=== PATIENT | male | born 1930 | race Caucasian/White ===

== ENCOUNTER 2021-11-12 08:33 | Inpatient (IN) | payer OTHER ==
[~2021-11-12] VITALS: Ht 175.3 cm; Wt 53.6 kg
[~2021-11-12 08:33] MED LIST: ASPI81CH43; SIMV20TA2
[2021-11-12 10:45] LABS: Basophils # (auto) 0.1 10 ^3/uL (0-0.2); Basophils % (auto) 1.2 % (0.0-2.0); Eosinophils # (auto) 0.4 10 ^3/uL (0-0.8); Eosinophils % (auto) 6.4 % (0.0-7.0); Hematocrit 36.6 % (41.0-53.0); Hemoglobin 12.1 g/dL (13.5-17.5); Lymphocytes % (auto) 15.8 % (10.0-50.0); Mean Corpuscular Hemoglobin 32.9 pg (28.0-32.0); Mean Corpuscular Hgb Conc. 33.1 g/dL (32.0-36.0); Mean Corpuscular Volume 99.4 fL (80.0-100.0); Monocytes % (auto) 16.6 % (0.0-12.0); Neutrophils # (auto) 3.6 10 ^3/uL (1.6-8.6); Red Blood Cells 3.68 10^6/uL (4.5-5.90); Red Cell Distribution Width 16.9 % (11.8-14.3)
[2021-11-12 10:47] LABS: Albumin 2.7 g/dL (3.4-5.0); Calcium 8.3 mg/dL (8.5-10.1); Potassium 3.8 mmol/L (3.5-5.1)
[2021-11-12 10:53] LABS: BUN/Creatinine Ratio 14.1; Bilirubin, Total 0.6 mg/dL (0.2-1.0); Total Protein 6.6 g/dL (6.4-8.2)
[2021-11-12] MEDS ORDERED: ASPirin 81 mg TAB PO ONE (13:00)
[2021-11-12] MEDS ORDERED: FUROSEMIDE 40 MG/4 ML VIAL IV ONE ×2 (13:00→17:00)
[2021-11-12] MEDS ORDERED: cefTRIAXone 1GM/50ML D5W 50 ML IV ONE (14:30)
[2021-11-12] MEDS ORDERED: ONDANSETRON HCL 4 MG/2 ML VIAL IV PRN (17:00)
[2021-11-12] MEDS ORDERED: DOCUSATE SOD 100 MG CAP PO PRN (17:00)
[2021-11-12] MEDS ORDERED: ACETAMINOPHEN 325 MG TAB PO PRN (17:00)
[2021-11-12] MEDS ORDERED: HYDROcodone-ACET 5/325MG TAB PO PRN (17:00)
[2021-11-12] MEDS: ALBUTEROL SULF 2.5 MG/0.5ML(0.5%) NEB SOLN NEB SCH (18:25)
[2021-11-12] MEDS: levoFLOXacin 500 MG TAB PO SCH (18:32)
[2021-11-12 21:30] VITALS: BP_SYST 126; BP_SYST 129; BP_DIAS 50; BP_DIAS 64
[2021-11-13] VITALS (7 sets, daily range): BP systolic 99–131; BP diastolic 41–58
[2021-11-13] MEDS ORDERED: PRAV20TA3 PO (02:08)
[2021-11-13] MEDS ORDERED: DILT120C41 PO (02:08)
[2021-11-13] MEDS ORDERED: CLIN300C8 PO (02:08)
[2021-11-13] MEDS ORDERED: IBUP200C3 PO (02:08)
[2021-11-13] MEDS ORDERED: DOCU-96 PO (02:08)
[2021-11-13] MEDS ORDERED: FURO40TA4 PO (02:08)
[2021-11-13] MEDS ORDERED: MULT-1018 PO (02:08)
[2021-11-13] MEDS: ALBUTEROL SULF 2.5 MG/0.5ML(0.5%) NEB SOLN NEB SCH ×4 (06:00→18:13)
[2021-11-13] MEDS: FUROSEMIDE 40 MG/4 ML VIAL IV SCH (10:58)
[2021-11-13] MEDS: levoFLOXacin 500 MG TAB PO SCH (14:17)
[2021-11-13] MEDS ORDERED: ALBUAER3 IN (16:36)
[2021-11-13] MEDS ORDERED: LEVO-28 PO (16:36)
[2021-11-13] MEDS: ATORVASTATIN 20 MG TAB PO SCH (22:00)
[2021-11-14 05:00] VITALS: BP 135/59
[2021-11-14] MEDS: ALBUTEROL SULF 2.5 MG/0.5ML(0.5%) NEB SOLN NEB SCH ×3 (06:57→19:02)
[2021-11-14 09:00] VITALS: BP 134/57
[2021-11-14] MEDS: ASPirin 81 mg TAB PO SCH (10:23)
[2021-11-14] MEDS: levoFLOXacin 500 MG TAB PO SCH (10:23)
[2021-11-14] MEDS: FUROSEMIDE 40 MG/4 ML VIAL IV SCH (10:23)
[2021-11-14 13:00] VITALS: BP 105/49
[2021-11-14 17:00] VITALS: BP 111/50
[2021-11-14 20:00] VITALS: BP 115/75
[2021-11-14 22:00] VITALS: BP 91/49
[2021-11-14] MEDS: ATORVASTATIN 20 MG TAB PO SCH (22:47)
[2021-11-15 05:08] VITALS: BP 114/43
[2021-11-15] MEDS: ALBUTEROL SULF 2.5 MG/0.5ML(0.5%) NEB SOLN NEB SCH ×2 (06:35→22:42)
[2021-11-15 09:25] VITALS: BP 108/48
[2021-11-15] MEDS: levoFLOXacin 500 MG TAB PO SCH (09:30)
[2021-11-15] MEDS: ASPirin 81 mg TAB PO SCH (09:30)
[2021-11-15] MEDS: FUROSEMIDE 40 MG/4 ML VIAL IV SCH (09:30)
[2021-11-15 13:00] VITALS: BP 88/44
[2021-11-15 17:00] VITALS: BP 95/38
[2021-11-15 20:57] VITALS: BP 95/47
[2021-11-15] MEDS: ATORVASTATIN 20 MG TAB PO SCH (22:20)
[2021-11-16 05:15] VITALS: BP 128/62
[2021-11-16] MEDS: ALBUTEROL SULF 2.5 MG/0.5ML(0.5%) NEB SOLN NEB SCH ×3 (05:50→18:44)
[2021-11-16 09:00] VITALS: BP 121/51
[2021-11-16] MEDS: FUROSEMIDE 40 MG/4 ML VIAL IV SCH (11:10)
[2021-11-16] MEDS: ASPirin 81 mg TAB PO SCH (11:11)
[2021-11-16] MEDS: levoFLOXacin 500 MG TAB PO SCH (11:11)
[2021-11-16 13:00] VITALS: BP 98/43
[2021-11-16 17:00] VITALS: BP 115/68
[2021-11-16] MEDS: ATORVASTATIN 20 MG TAB PO SCH (21:45)
[2021-11-16 22:00] VITALS: BP 113/44
[2021-11-17 04:00] VITALS: BP 119/52
[2021-11-17] MEDS: ALBUTEROL SULF 2.5 MG/0.5ML(0.5%) NEB SOLN NEB SCH ×3 (05:47→19:04)
[2021-11-17 07:30] VITALS: BP 121/51
[2021-11-17 08:00] VITALS: BP 118/46
[2021-11-17] MEDS: FUROSEMIDE 40 MG/4 ML VIAL IV SCH (10:00)
[2021-11-17] MEDS: ASPirin 81 mg TAB PO SCH (10:00)
[2021-11-17] MEDS: levoFLOXacin 500 MG TAB PO SCH (10:01)
[2021-11-17] MEDS: ATORVASTATIN 20 MG TAB PO SCH (21:31)
[2021-11-17 22:00] VITALS: BP 101/51
[2021-11-18 05:30] VITALS: BP 136/60
[2021-11-18] MEDS: ALBUTEROL SULF 2.5 MG/0.5ML(0.5%) NEB SOLN NEB SCH ×2 (06:04→11:32)
[2021-11-18 09:00] VITALS: BP 132/52
[2021-11-18] MEDS: FUROSEMIDE 40 MG/4 ML VIAL IV SCH (10:05)
[2021-11-18] MEDS: ASPirin 81 mg TAB PO SCH (10:05)
[2021-11-18] MEDS: levoFLOXacin 500 MG TAB PO SCH (10:05)
[2021-11-18 12:00] VITALS: BP 110/46
[2021-11-18 14:32] VITALS: BP 132/52
== END 2021-11-18 16:50 | disposition home health service (06) | DRG 205 ==
LOC: ER 08:33 → EDBD 08:33 → TELE 16:49 → TELE-CENTR 20:42 → OBSVTOIN 11-14 18:00
PROVIDERS: ADMIT Internal Medicine; ATTEND Internal Medicine
DX: J95.89 Other postprocedural complications and disorders of respiratory system, not elsewhere classified (principal); J95.821 Acute postprocedural respiratory failure; I50.33 Acute on chronic diastolic (congestive) heart failure; J18.9 Pneumonia, unspecified organism; J44.0 Chronic obstructive pulmonary disease with (acute) lower respiratory infection; E78.5 Hyperlipidemia, unspecified; I25.5 Ischemic cardiomyopathy; I25.10 Atherosclerotic heart disease of native coronary artery without angina pectoris; Y83.8 Other surgical procedures as the cause of abnormal reaction of the patient, or of later complication, without mention of misadventure at the time of the procedure; I11.0 Hypertensive heart disease with heart failure; Z77.090 Contact with and (suspected) exposure to asbestos; Z79.899 Other long term (current) drug therapy; Z82.49 Family history of ischemic heart disease and other diseases of the circulatory system; Z83.3 Family history of diabetes mellitus; Z98.890 Other specified postprocedural states; Z87.891 Personal history of nicotine dependence; Z95.0 Presence of cardiac pacemaker; Z95.1 Presence of aortocoronary bypass graft
CPT/HCPCS: 36415; 71045; 71250; 80053; 83880; 84484; 85025; 87426; 93005; 93306; 94640; 96365; 96375; 97110; 97116; 97530; 99291; G0378; J0696

== ENCOUNTER 2021-11-29 09:47 | Inpatient (IN) | payer OTHER ==
[~2021-11-29] VITALS: Ht 165.1 cm; Wt 70.3 kg
[~2021-11-29 09:47] MED LIST changes: +ALBUAER3 IN; +DILT120C41 PO; +DOCU-96 PO; +FURO40TA4 PO; +LEVO-28 PO; +PRAV20TA3 PO; -SIMV20TA2
[2021-11-29] MEDS ORDERED: SODIUM CHLORIDE 0.9% 500 ML IVB ONE (11:00)
[2021-11-29] MEDS ORDERED: SODIUM CHLORIDE 0.9% 1,000 ML IV ONE (11:00)
[2021-11-29 11:48] LABS: INR 1.13 (0.9-1.15); Partial Thromboplastin Time 30.5 sec (23.6-33.0)
[2021-11-29 11:49] LABS: Hematocrit 38.2 % (41.0-53.0); Hemoglobin 12.6 g/dL (13.5-17.5); Mean Corpuscular Hemoglobin 32.4 pg (28.0-32.0); Mean Corpuscular Hgb Conc. 32.9 g/dL (32.0-36.0); Mean Corpuscular Volume 98.3 fL (80.0-100.0); Red Blood Cells 3.89 10^6/uL (4.5-5.90); Red Cell Distribution Width 16.4 % (11.8-14.3); White Blood Cell 5.1 10^3/uL (4.4-10.8)
[2021-11-29 11:51] LABS: Albumin 2.5 g/dL (3.4-5.0); Calcium 8.2 mg/dL (8.5-10.1); Magnesium 2.4 mg/dL (1.6-2.6); Potassium 3.6 mmol/L (3.5-5.1)
[2021-11-29 11:58] LABS: BUN/Creatinine Ratio 13.4; Bilirubin, Total 0.8 mg/dL (0.2-1.0); Total Protein 6.4 g/dL (6.4-8.2)
[2021-11-29 12:10] LABS: Basophils % (manual) 0 (0.0-2.0); Blast Cells 0; Metamyelocytes % 0; Myelocytes % 0; Promyelocytes % 0; Reactive Lymphocytes 0
[2021-11-29 12:24] LABS: Band Neutrophils % (manual) 3; Eosinophils % (manual) 7 (0-7); Lymphocytes % (manual) 31 (10.0-50.0); Monocytes % (manual) 15 (0-12)
[2021-11-29 14:18] LABS: Urine Bacteria NONE SEEN /hpf (None Seen); Urine Blood Negative /uL (Negative); Urine Mucus FEW (None Seen); Urine Specific Gravity 1.023 (1.001-1.035); Urine WBC 2 /hpf (0 - 3)
[2021-11-29 14:28] LABS: Amphetamine Screen, Urine NEGATIVE (NEGATIVE); Barbiturate Scree,Urine NEGATIVE (NEGATIVE); Benzodiazephine Screen, Urine NEGATIVE (NEGATIVE); Cannabinoid Screen, Urine NEGATIVE (NEGATIVE); Cocaine Screen, Urine NEGATIVE (NEGATIVE); Opiate Scree,Urine NEGATIVE (NEGATIVE); Phencyclidine Screen, Urine NEGATIVE (NEGATIVE)
[2021-11-29] MEDS ORDERED: SODIUM CHLORIDE 0.9% 1,000 ML IV SCH ×2 (17:45→20:15)
[2021-11-29] MEDS ORDERED: MORPHINE SULFATE INJECTION 2 MG/ML SYRG IV PRN (17:45)
[2021-11-29] MEDS ORDERED: NITROGLYCERIN 0.4 MG SL TAB SL PRN (17:45)
[2021-11-29 19:10] VITALS: BP 148/57
[2021-11-29 22:00] VITALS: BP 148/51
[2021-11-29] MEDS: ATORVASTATIN 20 MG TAB PO SCH (22:00)
[2021-11-30 05:00] VITALS: BP 147/82
[2021-11-30 06:45] LABS: Cholesterol 140 mg/dL (< 200); HDL Cholesterol 38 mg/dL (40-59); LDL Cholesterol 92 mg/dL (< 100); Triglycerides 74 mg/dL (< 150)
[2021-11-30 08:00] VITALS: BP 144/57
[2021-11-30] MEDS ORDERED: REMDESIVIR PER PHARMACY 0 ML IV SCH (09:15)
[2021-11-30 09:54] LABS: CRP High Sensitivity 0.57 mg/dL (< 0.3)
[2021-11-30] MEDS: ASPirin 81 mg TAB PO SCH (10:00)
[2021-11-30] MEDS: CHOLECALCIFEROL (VITD3) 2,000 UNIT CAP/TAB PO SCH (10:00)
[2021-11-30 10:11] LABS: Thyroid Stimulating Hormone 0.96 uIU/mL (0.358-3.74)
[2021-11-30] MEDS: BUDESONIDE (INHALATION) 180 MCG IH IN SCH ×2 (10:36→19:51)
[2021-11-30] MEDS: ALBUTEROL SULF HFA 90MCG INH 200DOSE IN PRN ×2 (10:36→19:52)
[2021-11-30 12:00] VITALS: BP 122/59
[2021-11-30] MEDS: InsuLIN REG 1unit/0.01ml Soln (100units/ml) SC SCH ×2 (12:00→18:28)
[2021-11-30] MEDS: DexAMETHasone SOD PHOS 10MG/1ML VIAL INJ IV SCH (13:29)
[2021-11-30] MEDS: D5W/SOD CHL 0.45% 1,000 ML IV SCH ×2 (13:29→23:33)
[2021-11-30] MEDS: ENOXAPARIN SOD 40 MG/0.4 ML SYRINGE SC SCH ×2 (13:30→21:50)
[2021-11-30] MEDS: ACCU-CHEK COMFORT CURVE STRIP VI SCH ×2 (13:51→18:15)
[2021-11-30] MEDS: DOXYCYCLINE 100MG/250ML 250 ML IV SCH ×2 (13:51→21:49)
[2021-11-30 13:58] LABS: Folate (Folic Acid) 23.31 ng/mL (5.38-24)
[2021-11-30] MEDS ORDERED: REMDESIVIR 200 MG in NS 210ml LOADING DOSE ADULT IV ONE (15:00)
[2021-11-30 16:00] VITALS: BP 127/60
[2021-11-30] MEDS: ATORVASTATIN 20 MG TAB PO SCH (21:50)
[2021-11-30 22:00] VITALS: BP 132/52
[2021-12-01] MEDS: ACCU-CHEK COMFORT CURVE STRIP VI SCH ×4 (00:23→18:09)
[2021-12-01] MEDS: InsuLIN REG 1unit/0.01ml Soln (100units/ml) SC SCH ×4 (00:24→18:25)
[2021-12-01] MEDS: D5W/SOD CHL 0.45% 1,000 ML IV SCH ×2 (00:30→17:30)
[2021-12-01 05:00] VITALS: BP 121/65
[2021-12-01] MEDS: BUDESONIDE (INHALATION) 180 MCG IH IN SCH ×2 (07:16→19:34)
[2021-12-01] MEDS: ALBUTEROL SULF HFA 90MCG INH 200DOSE IN PRN ×3 (07:16→22:49)
[2021-12-01 08:06] VITALS: BP 129/53
[2021-12-01] MEDS: CHOLECALCIFEROL (VITD3) 2,000 UNIT CAP/TAB PO SCH (10:00)
[2021-12-01] MEDS: ASPirin 81 mg TAB PO SCH (10:00)
[2021-12-01] MEDS: DexAMETHasone SOD PHOS 10MG/1ML VIAL INJ IV SCH (10:19)
[2021-12-01] MEDS: DOXYCYCLINE 100MG/250ML 250 ML IV SCH ×2 (10:19→21:35)
[2021-12-01] MEDS: ENOXAPARIN SOD 40 MG/0.4 ML SYRINGE SC SCH ×2 (10:20→21:36)
[2021-12-01] MEDS ORDERED: IOHEXOL 350 MG/ML 100ML IJ ONE (11:59)
[2021-12-01 12:25] VITALS: BP 137/52
[2021-12-01 14:02] LABS: Basophils # (auto) 0 10 ^3/uL (0-0.2); Basophils % (auto) 0.5 % (0.0-2.0); Eosinophils # (auto) 0 10 ^3/uL (0-0.8); Eosinophils % (auto) 0.1 % (0.0-7.0); Hematocrit 39.2 % (41.0-53.0); Hemoglobin 13.1 g/dL (13.5-17.5); Lymphocytes # (auto) 0.9 10 ^3/uL (0.4-5.4); Lymphocytes % (auto) 15.2 % (10.0-50.0); Mean Corpuscular Hemoglobin 32.5 pg (28.0-32.0); Mean Corpuscular Hgb Conc. 33.3 g/dL (32.0-36.0); Mean Corpuscular Volume 97.6 fL (80.0-100.0); Monocytes # (auto) 0.3 10 ^3/uL (0-1.3); Monocytes % (auto) 4.5 % (0.0-12.0); Neutrophils % (auto) 79.7 % (37.0-80.0); Nucleated Red Blood Cells % 0.3 %; Red Blood Cells 4.02 10^6/uL (4.5-5.90); Red Cell Distribution Width 15.7 % (11.8-14.3); White Blood Cell 6.3 10^3/uL (4.4-10.8)
[2021-12-01 14:12] LABS: Albumin 2.1 g/dL (3.4-5.0); Calcium 7.9 mg/dL (8.5-10.1); Potassium 3.6 mmol/L (3.5-5.1)
[2021-12-01 14:16] LABS: BUN/Creatinine Ratio 17.6; Bilirubin, Total 0.4 mg/dL (0.2-1.0); Total Protein 5.8 g/dL (6.4-8.2)
[2021-12-01] MEDS: REMDESIVIR 100mg 100 MG in SODIUM CHL 0.9% 230 ML IV SCH (15:35)
[2021-12-01 17:00] VITALS: BP 122/59
[2021-12-01] MEDS ORDERED: hydrALAZINE HCL 20 MG/ML VL IV PRN (19:00)
[2021-12-01] MEDS: CLOPIDOGREL BISULFATE 75 MG TAB PO SCH (21:34)
[2021-12-01] MEDS: ATORVASTATIN 20 MG TAB PO SCH (21:35)
[2021-12-01 22:00] VITALS: BP 124/60
[2021-12-02] MEDS: ACCU-CHEK COMFORT CURVE STRIP VI SCH ×4 (00:04→17:55)
[2021-12-02] MEDS: InsuLIN REG 1unit/0.01ml Soln (100units/ml) SC SCH ×4 (00:14→18:27)
[2021-12-02 05:00] VITALS: BP 134/56
[2021-12-02] MEDS: BUDESONIDE (INHALATION) 180 MCG IH IN SCH ×2 (07:29→19:47)
[2021-12-02] MEDS: ALBUTEROL SULF HFA 90MCG INH 200DOSE IN PRN ×2 (07:29→19:47)
[2021-12-02 07:57] LABS: Albumin 2.1 g/dL (3.4-5.0); BUN/Creatinine Ratio 21.3; Calcium 8.2 mg/dL (8.5-10.1); Potassium 3.6 mmol/L (3.5-5.1)
[2021-12-02 08:01] LABS: Bilirubin, Total 0.4 mg/dL (0.2-1.0); Total Protein 5.8 g/dL (6.4-8.2)
[2021-12-02 09:00] VITALS: BP 147/69
[2021-12-02] MEDS: D5W/SOD CHL 0.45% 1,000 ML IV SCH (09:30)
[2021-12-02] MEDS: DexAMETHasone SOD PHOS 10MG/1ML VIAL INJ IV SCH (10:06)
[2021-12-02] MEDS: ASPirin 81 mg TAB PO SCH (10:06)
[2021-12-02] MEDS: DOXYCYCLINE 100MG/250ML 250 ML IV SCH ×2 (10:06→22:00)
[2021-12-02] MEDS: CLOPIDOGREL BISULFATE 75 MG TAB PO SCH (10:06)
[2021-12-02] MEDS: CHOLECALCIFEROL (VITD3) 2,000 UNIT CAP/TAB PO SCH (10:07)
[2021-12-02] MEDS: ENOXAPARIN SOD 40 MG/0.4 ML SYRINGE SC SCH ×2 (10:07→22:00)
[2021-12-02 13:00] VITALS: BP 131/54
[2021-12-02] MEDS: REMDESIVIR 100mg 100 MG in SODIUM CHL 0.9% 230 ML IV SCH (15:51)
[2021-12-02 17:00] VITALS: BP 118/64
[2021-12-02 22:00] VITALS: BP 133/61
[2021-12-02] MEDS: ATORVASTATIN 20 MG TAB PO SCH (22:00)
[2021-12-03] MEDS: ACCU-CHEK COMFORT CURVE STRIP VI SCH ×4 (00:19→17:43)
[2021-12-03 05:00] VITALS: BP 140/75
[2021-12-03] MEDS: InsuLIN REG 1unit/0.01ml Soln (100units/ml) SC SCH ×4 (05:54→17:43)
[2021-12-03] MEDS: BUDESONIDE (INHALATION) 180 MCG IH IN SCH (07:00)
[2021-12-03 08:00] VITALS: BP 150/77
[2021-12-03] MEDS: DexAMETHasone SOD PHOS 10MG/1ML VIAL INJ IV SCH (09:50)
[2021-12-03] MEDS: DOXYCYCLINE 100MG/250ML 250 ML IV SCH ×2 (09:50→21:36)
[2021-12-03] MEDS: ASPirin 81 mg TAB PO SCH (09:50)
[2021-12-03] MEDS: CHOLECALCIFEROL (VITD3) 2,000 UNIT CAP/TAB PO SCH (09:50)
[2021-12-03] MEDS: CLOPIDOGREL BISULFATE 75 MG TAB PO SCH (09:51)
[2021-12-03] MEDS: D5W/SOD CHL 0.45% 1,000 ML IV SCH (09:51)
[2021-12-03] MEDS: ENOXAPARIN SOD 40 MG/0.4 ML SYRINGE SC SCH ×2 (09:51→21:36)
[2021-12-03 11:32] LABS: Anion Gap 4 (5-15); Carbon Dioxide 20 mmol/L (21-32); Chloride 113 mmol/L (98-107); Potassium 4.2 mmol/L (3.5-5.1); Sodium 137 mmol/L (136-145)
[2021-12-03 11:33] LABS: Alanine Aminotransferase 30 U/L (16-61); Albumin 1.8 g/dL (3.4-5.0); Alkaline Phosphatase 64 U/L (45-117); Aspartate Aminotransferase 48 U/L (15-37); BUN/Creatinine Ratio 24.6; Bilirubin, Total 0.5 mg/dL (0.2-1.0); Blood Urea Nitrogen 16 mg/dL (7-18); Calcium 7.9 mg/dL (8.5-10.1); GFR African American 149 mL/min; GFR Non-African American 123 mL/min; Glucose 76 mg/dL (74-106); Total Protein 5.7 g/dL (6.4-8.2)
[2021-12-03 13:00] VITALS: BP 135/73
[2021-12-03] MEDS: REMDESIVIR 100mg 100 MG in SODIUM CHL 0.9% 230 ML IV SCH (16:19)
[2021-12-03 17:00] VITALS: BP 125/62
[2021-12-03] MEDS: ATORVASTATIN 20 MG TAB PO SCH (21:36)
[2021-12-03 22:00] VITALS: BP 130/53
[2021-12-04] MEDS: ACCU-CHEK COMFORT CURVE STRIP VI SCH ×5 (00:33→23:40)
[2021-12-04] MEDS: InsuLIN REG 1unit/0.01ml Soln (100units/ml) SC SCH ×5 (00:33→23:40)
[2021-12-04 04:55] VITALS: BP 152/67
[2021-12-04 09:00] VITALS: BP 122/61
[2021-12-04 09:06] LABS: Basophils # (auto) 0 10 ^3/uL (0-0.2); Basophils % (auto) 0.2 % (0.0-2.0); Eosinophils # (auto) 0 10 ^3/uL (0-0.8); Eosinophils % (auto) 0.4 % (0.0-7.0); Hemoglobin 13.6 g/dL (13.5-17.5); Mean Corpuscular Hemoglobin 32.5 pg (28.0-32.0); Mean Corpuscular Hgb Conc. 33.3 g/dL (32.0-36.0); Mean Corpuscular Volume 97.8 fL (80.0-100.0); Neutrophils # (auto) 4.3 10 ^3/uL (1.6-8.6); Neutrophils % (auto) 56.3 % (37.0-80.0); Nucleated Red Blood Cells % 0.2 %; Red Blood Cells 4.19 10^6/uL (4.5-5.90); White Blood Cell 7.6 10^3/uL (4.4-10.8)
[2021-12-04 09:07] LABS: Lymphocytes % (auto) 25.8 % (10.0-50.0); Monocytes # (auto) 1.3 10 ^3/uL (0-1.3); Monocytes % (auto) 17.3 % (0.0-12.0)
[2021-12-04] MEDS: D5W/SOD CHL 0.45% 1,000 ML IV SCH ×2 (09:24→18:24)
[2021-12-04 09:25] LABS: Albumin 2.4 g/dL (3.4-5.0); Calcium 8.1 mg/dL (8.5-10.1); Potassium 4.3 mmol/L (3.5-5.1)
[2021-12-04 09:29] LABS: BUN/Creatinine Ratio 26.4; Bilirubin, Total 0.6 mg/dL (0.2-1.0); CRP High Sensitivity 0.09 mg/dL (< 0.3); Total Protein 5.8 g/dL (6.4-8.2)
[2021-12-04] MEDS: ENOXAPARIN SOD 40 MG/0.4 ML SYRINGE SC SCH ×2 (10:00→22:21)
[2021-12-04] MEDS: DexAMETHasone SOD PHOS 10MG/1ML VIAL INJ IV SCH (10:21)
[2021-12-04] MEDS: CLOPIDOGREL BISULFATE 75 MG TAB PO SCH (10:21)
[2021-12-04] MEDS: ASPirin 81 mg TAB PO SCH (10:21)
[2021-12-04] MEDS: DOXYCYCLINE 100MG/250ML 250 ML IV SCH (10:21)
[2021-12-04] MEDS: CHOLECALCIFEROL (VITD3) 2,000 UNIT CAP/TAB PO SCH (10:22)
[2021-12-04 12:00] VITALS: BP 134/60
[2021-12-04] MEDS ORDERED: IOHEXOL 350 MG/ML 100ML IJ ONE (14:11)
[2021-12-04] MEDS ORDERED: LIDOCAINE 2%HCL (LOCAL ANESTH.) INJ 20ML MDV ONE (14:11)
[2021-12-04] MEDS ORDERED: GLYCOPYRROLATE 0.2 MG/ML 1ML VIAL ONE (14:15)
[2021-12-04] MEDS ORDERED: fentaNYL CITRATE 100 MCG/2 ML VL ONE (14:16)
[2021-12-04] MEDS ORDERED: ANGIOMAX 250 MG VIAL IV ONE (14:16)
[2021-12-04] MEDS ORDERED: SODIUM CHL 0.9% 50 ML ONE (14:16)
[2021-12-04] MEDS ORDERED: MIDAZOLAM HCL 2MG/2ML 2ml VIAL (1mg/ml) ONE (14:16)
[2021-12-04] MEDS: REMDESIVIR 100mg 100 MG in SODIUM CHL 0.9% 230 ML IV SCH (15:00)
[2021-12-04 16:00] VITALS: BP 124/54
[2021-12-04] MEDS: DEXTROSE (50%) 50ML SYRG IV PRN ×2 (17:26→22:59)
[2021-12-04 22:00] VITALS: BP 97/52
[2021-12-04] MEDS: ATORVASTATIN 20 MG TAB PO SCH ×2 (22:21→23:39)
[2021-12-04] MEDS ORDERED: DEXTROSE 50% SYRINGE 0 ML IV ONE (22:53)
[2021-12-05 05:00] VITALS: BP 92/52
[2021-12-05] MEDS: ACCU-CHEK COMFORT CURVE STRIP VI SCH ×6 (05:39→21:41)
[2021-12-05] MEDS: InsuLIN REG 1unit/0.01ml Soln (100units/ml) SC SCH (05:39)
[2021-12-05] MEDS: D5W/SOD CHL 0.45% 1,000 ML IV SCH ×2 (07:45→17:49)
[2021-12-05 08:00] VITALS: BP 106/46
[2021-12-05] MEDS: DEXTROSE (50%) 50ML SYRG IV PRN (09:22)
[2021-12-05] MEDS ORDERED: InsuLIN REG 1unit/0.01ml Soln (100units/ml) SC SCH (12:00)
[2021-12-05] MEDS: ENOXAPARIN SOD 40 MG/0.4 ML SYRINGE SC SCH (12:11)
[2021-12-05 13:00] VITALS: BP 93/50
[2021-12-05] MEDS: CLOPIDOGREL BISULFATE 75 MG TAB PO SCH (14:58)
[2021-12-05] MEDS: ASPirin 81 mg TAB PO SCH (14:59)
[2021-12-05 17:00] VITALS: BP 121/53
[2021-12-05] MEDS: ATORVASTATIN 20 MG TAB PO SCH (21:42)
[2021-12-05 22:00] VITALS: BP 109/49
[2021-12-06] MEDS: ACCU-CHEK COMFORT CURVE STRIP VI SCH ×8 (00:49→21:36)
[2021-12-06 04:58] VITALS: BP 120/56
[2021-12-06 08:13] VITALS: BP 120/59
[2021-12-06] MEDS: D5W/SOD CHL 0.45% 1,000 ML IV SCH ×2 (09:09→12:30)
[2021-12-06] MEDS: ENOXAPARIN SOD 40 MG/0.4 ML SYRINGE SC SCH (09:40)
[2021-12-06 12:40] VITALS: BP 101/34
[2021-12-06] MEDS: CLOPIDOGREL BISULFATE 75 MG TAB PO SCH (13:20)
[2021-12-06] MEDS: ASPirin 81 mg TAB PO SCH (13:20)
[2021-12-06] MEDS ORDERED: GLUCAGON HYDROCHLORIDE (RDNA) 1 MG VIAL IV ONE ×2 (15:15→15:45)
[2021-12-06 16:51] VITALS: BP 115/44
[2021-12-06 22:00] VITALS: BP 106/44
[2021-12-06] MEDS: ATORVASTATIN 20 MG TAB PO SCH (22:15)
[2021-12-07] MEDS: ACCU-CHEK COMFORT CURVE STRIP VI SCH ×8 (00:41→21:57)
[2021-12-07] MEDS: D5W/SOD CHL 0.45% 1,000 ML IV SCH (03:19)
[2021-12-07 05:00] VITALS: BP 116/62
[2021-12-07 08:00] VITALS: BP 118/55
[2021-12-07] MEDS: CLOPIDOGREL BISULFATE 75 MG TAB PO SCH (09:52)
[2021-12-07] MEDS: ENOXAPARIN SOD 40 MG/0.4 ML SYRINGE SC SCH (09:52)
[2021-12-07] MEDS: ASPirin 81 mg TAB PO SCH (09:52)
[2021-12-07 13:00] VITALS: BP 107/58
[2021-12-07] MEDS: MEGESTROL ACET 400MG/10ML ORAL SUSP PO SCH ×2 (14:10→21:58)
[2021-12-07 17:00] VITALS: BP 106/43
[2021-12-07] MEDS: ATORVASTATIN 20 MG TAB PO SCH (21:58)
[2021-12-07 23:17] VITALS: BP 103/41
[2021-12-08] MEDS: ACCU-CHEK COMFORT CURVE STRIP VI SCH ×5 (01:01→12:54)
[2021-12-08 05:11] VITALS: BP 114/52
[2021-12-08] MEDS: ENOXAPARIN SOD 40 MG/0.4 ML SYRINGE SC SCH (09:36)
[2021-12-08] MEDS: ASPirin 81 mg TAB PO SCH (09:36)
[2021-12-08] MEDS: CLOPIDOGREL BISULFATE 75 MG TAB PO SCH (09:36)
[2021-12-08] MEDS: MEGESTROL ACET 400MG/10ML ORAL SUSP PO SCH (09:36)
[2021-12-08 12:16] VITALS: BP 120/46
== END 2021-12-08 13:25 | disposition hospice, home (50) | DRG 34 ==
LOC: ER 09:47 → EDBD 09:47 → TELE 17:32 → TELE-EAST 21:10 → TELE-E-ADS 12-02 20:17
PROVIDERS: ADMIT Hospitalist; ATTEND Hospitalist
PROC: XW033E5 Introduction of Remdesivir Anti-infective into Peripheral Vein, Percutaneous Approach, New Technology Group 5 (ICD-10-PCS; 2021-11-30)
PROC: 037K34Z Dilation of Right Internal Carotid Artery with Drug-eluting Intraluminal Device, Percutaneous Approach (ICD-10-PCS; 2021-12-04)
PROC: B3181ZZ Fluoroscopy of Bilateral Internal Carotid Arteries using Low Osmolar Contrast (ICD-10-PCS; 2021-12-04)
PROC: B31R1ZZ Fluoroscopy of Intracranial Arteries using Low Osmolar Contrast (ICD-10-PCS; 2021-12-04)
PROC: 05H933Z Insertion of Infusion Device into Right Brachial Vein, Percutaneous Approach (ICD-10-PCS; principal; 2021-12-07)
PROC: B54MZZA Ultrasonography of Right Upper Extremity Veins, Guidance (ICD-10-PCS; 2021-12-07)
DX: I63.231 Cerebral infarction due to unspecified occlusion or stenosis of right carotid arteries (principal); I21.4 Non-ST elevation (NSTEMI) myocardial infarction; U07.1 COVID-19; G93.41 Metabolic encephalopathy; E43 Unspecified severe protein-calorie malnutrition; J96.01 Acute respiratory failure with hypoxia; G81.92 Hemiplegia, unspecified affecting left dominant side; H53.462 Homonymous bilateral field defects, left side; G30.9 Alzheimer's disease, unspecified; F02.80 Dementia in other diseases classified elsewhere, unspecified severity, without behavioral disturbance, psychotic disturbance, mood disturbance, and anxiety; J92.0 Pleural plaque with presence of asbestos; I50.9 Heart failure, unspecified; E03.9 Hypothyroidism, unspecified; E11.9 Type 2 diabetes mellitus without complications; E78.5 Hyperlipidemia, unspecified; F17.200 Nicotine dependence, unspecified, uncomplicated; I11.0 Hypertensive heart disease with heart failure; I25.10 Atherosclerotic heart disease of native coronary artery without angina pectoris; J43.9 Emphysema, unspecified; R62.7 Adult failure to thrive; Z51.5 Encounter for palliative care; Z74.01 Bed confinement status; Z79.82 Long term (current) use of aspirin; Z82.49 Family history of ischemic heart disease and other diseases of the circulatory system; Z83.3 Family history of diabetes mellitus; Z95.0 Presence of cardiac pacemaker; Z87.01 Personal history of pneumonia (recurrent); Z68.23 Body mass index [BMI] 23.0-23.9, adult
CPT/HCPCS: 36415; 37215; 70450; 70486; 70498; 71045; 71250; 80053; 80061; 80307; 81001; 82306; 82607; 82728; 82746; 82962; 83615; 83735; 84443; 84484; 85007; 85025; 85027; 85379; 85610; 85730; 86141; 87040; 87081; 87086; 92610; 93005; 93886; 94640; 95819; 96360; 96361; 97110; 97163; 97530; 99152; 99153; 99291; G0378; J1100; J1815; J2250; J3490